=== PATIENT | male | born 1980 | race Caucasian/White ===

== ENCOUNTER 2023-02-06 09:53 | Emergency (ER) | payer BC, SELFPAY ==
[2023-02-06 10:09] VITALS: BP 122/79; PULSE 89; RESP 16; TEMP 36.6; O2SAT 99
[2023-02-06 10:11] VITALS: BP 122/79; PULSE 89; RESP 16; TEMP 36.6; O2SAT 99
--- NOTE | 2023-02-06 10:36 | ED.URI ---
HPI - URI/Sore Throat General Chief Complaint: Upper Respiratory Infection Stated Complaint: sorethroat Time Seen by Provider: 02/06/23 10:27 Source: patient and RN notes reviewed Mode of arrival: ambulatory Limitations: no limitations History of Present Illness HPI Narrative: Patient presents today complaining of 4 day history of cough, rhinorrhea, and severe sore throat. Denies shortness of breath, fever, congestion or sinus pressure. Currently rates his pain 7/10 and has been taking cough drops and ibuprofen with some relief. Patient also takes amoxicillin every other day for his acne, but since symptoms began he has been taking it every day without improvement in his symptoms. Related Data Home Medications Medication Instructions Recorded Confirmed amoxicillin 500 mg capsule 500 mg PO PER PKG DIR 02/06/23 02/06/23 Allergies Allergy/AdvReac Type Severity Reaction Status Date / Time No Known Allergies Allergy Verified 02/06/23 10:09 Review of Systems Review of Systems: CONSTITUTIONAL: Denies body aches, fever, chills, or sweats. EYES: Denies visual changes, redness, or discharge. ENT: Denies congestion, or otalgia.+ rhinorrhea, sore throat CARDIOVASCULAR: Denies chest pain, palpitations, or edema. RESPIRATORY: Denies dyspnea.+ cough GASTROINTESTINAL: Denies abdominal pain, nausea, vomiting, or diarrhea. GENITOURINARY: Denies dysuria or hematuria. SKIN: Denies rash, itching, or wounds. MUSCULOSKELETAL: Denies back pain, joint pain, or myalgia. NEUROLOGIC: Denies headache, numbness, tingling, or weakness. PSYCH: Denies depression or anxiety. PMFSH Surgical History Surgical History S/P appendectomy Social History Social History Smoking status: Never smoker Alcohol intake: current Drinks per week: 2 Substance use: never Substance use type: does not use Comments At time of signature, I have reviewed and agree with nursing past medical, surgical, social and family history unless otherwise noted. Please see nursing chart for further information. There is no relevant family history pertinent to the presenting complaint Exam Narrative: GENERAL: Well-appearing, well-nourished, and in no acute distress. HEAD: Normocephalic, atraumatic. EYES: EOMI. No redness or drainage. Conjunctivae normal. ENT: Mucous membranes pink and moist. Nares clear. No rhinorrhea. TMs normal bilaterally. Throat normal. Uvula midline. NECK: Normal AROM. Supple. No lymphadenopathy. CHEST: No respiratory distress. Clear to auscultation. HEART: Regular rate and rhythm. No murmur appreciated. Normal peripheral pulses. EXTREMITIES: Normal range of motion. No edema. SKIN: Warm, dry, no rash. Capillary refill normal. Normal skin turgor. NEURO: No focal deficits. Alert and oriented x3. Gait steady. PSYCH: Normal affect. No signs of depression or anxiety. Course Course Level of Care: Express Care Visit Vital Signs Vital signs: Vital Signs Temperature 97.8 F 02/06/23 10:09 Pulse Rate 89 02/06/23 10:09 Respiratory Rate 16 02/06/23 10:09 Blood Pressure 122/79 02/06/23 10:09 Pulse Oximetry 99 02/06/23 10:09 Oxygen Delivery Room Air 02/06/23 10:09 Temperature 97.8 F 02/06/23 10:11 Pulse Rate 89 02/06/23 10:11 Respiratory Rate 16 02/06/23 10:11 Blood Pressure 122/79 02/06/23 10:11 Pulse Oximetry 99 02/06/23 10:11 Oxygen Delivery Room Air 02/06/23 10:11 Reviewed. Pt has been instructed to follow up with his PCP regarding his elevated blood pressure today. MDM - URI/Sore Throat MDM Narrative Medical decision making narrative: Rapid strep negative. Symptoms likely viral. Will treat severe sore throat with prednisone. Anticipatory guidance given. Differential Diagnosis Differential diagnosis: Likely upper respiratory infection, viral infecti
== END 2023-02-06 11:13 | disposition home or self-care (01) ==
PROVIDERS: Emergency Provider Nurse Practitioner; PCP Family Medicine
DX: J06.9 Acute upper respiratory infection, unspecified (principal)
CPT/HCPCS: 87081; 87880; 99213; G0463